=== PATIENT | male | born 1995 | race African-American/Black ===

== ENCOUNTER 2016-12-30 07:33 | Emergency (ER) | payer MEDICAID, OTHER ==
[~2016-12-30] VITALS: Ht 172.7 cm; Wt 68.2 kg
[~2016-12-30 07:33] MED LIST: OMEP20CA11 PO; SUCR1ORA2 PO
[2016-12-30 07:36] VITALS: BP 152/102; PULSE 81; RESP 18; O2SAT 96
--- NOTE | 2016-12-30 07:40 | ED.REPORT ---
HPI-NVD Date of Service Dec 30, 2016 ED Provider: The patient is a 21 year old otherwise healthy male who presents to the emergency department complaining of nausea, vomiting, and diarrhea that began last night. He has also experienced abdominal pain, subjective fever, and diaphoresis. He reports noticing some blood in his emesis this morning. His diarrhea has been watery. He denies any other symptoms. His daughter is sick with similar symptoms. Nursing Notes Stated Complaint: VOMITING/DIARRHEA Chief Complaint: Male Abdominal Pain Nursing Notes Reviewed: Yes Allergies: Coded Allergies: No Known Allergies (Unverified Allergy, Unknown, 10/31/14) Scheduled Omeprazole (Omeprazole) 20 Mg Capsule.dr 20 MG PO BID Sucralfate Susp (Carafate Susp) 1 Gm/10 Ml Oral.susp 1 GM PO QID Scheduled PRN Ondansetron ODT (Zofran ODT) 4 Mg Tablet 4 MG PO Q4H PRN PRN For Nausea General Time Seen by MD: 07:44 Chief Complaint Nausea, Vomiting, Diarrhea Hx Obtained From: Patient Arrived By: Walk-in Onset Occurred: 13 - 16 hours ago Symptom Duration: Since onset Location: : Diffuse Quality: Painful Severity: Current: Mild Severity: Maximum: Mild Associated with: Reports: Abdominal pain Pertinent Negative: Pt denies other symptoms Recent Healthcare: No recent doctor visit, No recent hospitalization Similar Sx Previous: No Past Medical History Past Medical History Back fracture - otherwise pt denies other medical problems Past Surgical History None Family History Noncontributory Smoking History Current Every Day Smoker Social History Alcohol Use: 1-3 per day Drug Use: THC Other Social History: Good social support, Lives with children, Local resident Ambulatory Status Independent Review of Systems Review of Systems Note: +bloody emesis Constitutional: Reports: Fever (subjective) Ears / Nose / Throat: Denies: Sore throat GI: Reports: Abdominal pain, Diarrhea, Nausea, Vomiting Skin: Reports Diaphoresis Complete sys rev & neg: except as marked. Physical Exam Initial Vital Signs Vital Signs (First) Date Time Temp Pulse Resp B/P Pulse Ox O2 Delivery O2 Flow Rate FiO2 12/30/16 07:36 36.0 81 18 152/102 96 Room Air Initial VS: Reviewed Head / Eyes: Atraumatic, Normocephalic, PERRL Neck: Supple, Non-tender, Full range of motion Respiratory: Breath sounds normal, Clear to auscultation, No respiratory distress Cardiovascular: Regular rate & rhythm, Heart sounds normal, Intact distal pulses Lymphatic: No lymphadenopathy Extremities: Vascular intact, Neuro intact, No swelling, No tenderness Skin: Warm, Dry, No cyanosis Neurologic: Alert, Oriented, Nonfocal Psychiatric: Mood/affect normal, Behavior normal, Normal thought content General/Constitutional: Awake, Alert, Well appearing Abdomen: Atraumatic, Soft, Non-tender, McBurney's non-tender, No guarding, No rebound, BS normoactive, No distention, No hernia, No palpable mass Tenderness/Guarding/Rebound: Positive: Tender epigastric (mild) ENT: Airway patent, Mucous membranes moist, Pharynx NL No blood in oropharynx. Re-Eval/Medical Decision Med Decision/Clinical Course Likely self-limited nausea vomiting and diarrhea. Family with similar symptoms. Reassuring abdominal exam. No recurrence in the ER. Was some reported question of whether or not the patient had bloody emesis, this did not sound like life-threatening gastrointestinal bleeding based on clinical history and there has been no recurrence of vomiting in the ER. Discussion with patient that we will manage this like a self-limiting episode of vomiting and diarrhea, extensive discussion about return precautions specifically related to bloody vomiting and diarrhea or other concerns given. Source of Hx: Old records, Family Re-Evaluation/Progress : Time of Eval: 08:36 Re-Evaluation/Progress Note: The patient was able to tolerate PO and is feeling much better. Discussed plan for discharge. All questions were addressed. Counseled Regarding: Diagnosis, Need for follow-up, When/why to return to ED Discharge & Departure Impression: Primary Impression: Nausea, vomiting, and diarrhea Disposition: Home Discharge Condition All VS Reviewed: Yes Condition: Stable Patient Instructions: Acute Nausea and Vomiting (ED) Additional Instructions: Thank you for entrusting us with your care today. You can take Zofran as needed for your nausea and vomiting. Use [id number] antidiarrheal medicine as instructed on the packaging. Drink fluids as tolerated. Followup with your regular doctor if your symptoms are not improving. Return to the emergency department for increased pain, uncontrollable vomiting, inability to keep fluids down, bloody emesis, bloody diarrhea, or any other new or concerning symptoms. Referrals: [facility] Scribe Attestation Portions of this note were transcribed by Penny Frost. I, Dr. Nathan personally performed the history, physical exam and medical decision-making; I reviewed and confirmed the accuracy of the information in the transcribed note. Signed by: Maite Ramey, 12/30/2016 and 0850. Kip Nathan DO Dec 30, 2016 07:40 Penny Frost Dec 30, 2016 07:49
[2016-12-30] MEDS ORDERED: Ondansetron 8 mg ODT Tablet PO ONE (07:45)
[2016-12-30] MEDS ORDERED: ONDA4TAB9 PO (08:44)
== END 2016-12-30 08:45 | disposition home or self-care (01) ==
LOC: SED 07:33
DX: R11.2 Nausea with vomiting, unspecified (principal); R19.7 Diarrhea, unspecified; F17.200 Nicotine dependence, unspecified, uncomplicated

== ENCOUNTER 2017-04-11 11:41 | Emergency (ER) | payer OTHER ==
[~2017-04-11] VITALS: Ht 170.2 cm; Wt 70.5 kg
[~2017-04-11 11:41] MED LIST changes: +ONDA4TAB9 PO
[2017-04-11 11:43] VITALS: BP 134/81; PULSE 60; RESP 16; O2SAT 98
--- NOTE | 2017-04-11 11:58 | ED.REPORT ---
HPI-Chest Pain Under 40 Date of Service April 11, 2017 ED Provider: Buzz Tao MD Pt is a 22 y.o. male with a self-reported hx of back fracture who presents to the ED c/o intermittent severe right chest pain rated at an 8 onset 2 days ago and worsening today. Pt states that his chest pain radiates to his right shoulder and right upper back. The pain is exacerbated by movement, deep inspiration, and palpation. He reports associated SOB. He denies fever, nausea, vomiting, numbness and tingling in extremities, and recent illness. Pt denies a mechanism of injury however he does state he lifts objects at work. Nursing Notes Stated Complaint: MUSCLE SPASMS,BACK AND CHEST PAIN Chief Complaint: Chest Pain-Non Cardiac Nature Nursing Notes Reviewed: Yes Allergies: Coded Allergies: No Known Allergies (Verified Allergy, Unknown, 04/11/17) Scheduled Azithromycin (Zithromax (Z-Ran)) 250 Mg Tablet 250 MG PO DIRECTED Take two tablets by mouth on day 1, then take one tablet daily on days 2 through 5. Scheduled PRN Ibuprofen (Ibuprofen) 800 Mg Tablet 800 MG PO TID PRN PRN For Pain General Time Seen by MD: 11:46 Chief Complaint Chest pain Hx Obtained From: Patient Arrived By: Walk-in Sudden in Onset?: Yes Location: : Chest right Quality: Painful Radiation: : Back: Shoulder right Severity: Current: Moderate Severity: Maximum: Severe Recent Healthcare: No recent doctor visit, No recent hospitalization Past Medical History Past Medical History Back fracture - otherwise pt denies other medical problems Past Surgical History None Family History Noncontributory Smoking History Current Every Day Smoker Social History Alcohol Use: 1-3 per day Drug Use: THC Other Social History: Good social support, Lives with children, Local resident Ambulatory Status Independent Review of Systems Constitutional: Denies: Fever Cardiovascular: Reports: Chest pain (Right) GI: Denies: Nausea, Vomiting Musculoskeletal: Reports: Back pain, Joint pain (Right shoulder) Neurologic: Denies: Numbness Complete sys rev & neg: except as marked. Physical Exam Initial Vital Signs Vital Signs (First) Date Time Temp Pulse Resp B/P Pulse Ox O2 Delivery O2 Flow Rate FiO2 04/11/17 11:43 36.7 60 16 134/81 98 Room Air Initial VS: Reviewed Head / Eyes: Atraumatic, Normocephalic, PERRL Abdomen / GI: Soft, Non-tender, No distention Extremities: Vascular intact, Neuro intact Skin: Warm, Dry, No cyanosis Neurologic: Alert, Oriented, Nonfocal Psychiatric: Mood/affect normal, Behavior normal, Normal thought content General/Constitutional: Awake, Alert, Well appearing, Well developed, Well hydrated, Well nourished, Not toxic appearing Respiratory / Chest: Atraumatic, Breath sounds NL, Breath sounds = bilat, No respiratory distress, No wheezing Cardiovascular: Heart rate NL, Regular rhythm, Heart sounds NL, Cap refill not delayed, Peripheral circulation NL Upper Extremity / MS: Atraumatic, No deformity, Neurologic intact, Vascular intact Upper Ext Brief Normals: Shoulder L exam normal Right Shoulder: Positive: ROM reduced (Due to pain), Tenderness present..., Negative: Deformity present, Erythema present, Warmth present Interpretation & Diagnostics ECG Interpretation ECG Interpretation: Early repol in V2 No ST changes Time: 13:09 Interpreted by: ED physician Normal ECG Interpretation: Normal rate (57), Normal sinus rhythm, No acute ischemic changes, Normal QRS X-Ray Chest Interpretation Chest Xray Interpretation: IMPRESSION: Ill-defined patchy opacity projecting in the right lung base possibly early bronchopneumonia, versus low-grade atelectasis/aspiration. Recommend clinical correlation Dictated by: Tuan Ellis M.D. on 04/11/2017 at 13:25 Approved by: Tuan Ellis M.D. on 04/11/2017 at 13:27 Re-Eval/Medical Decision Med Decision/Clinical Course 22-year-old male presenting with right-sided chest pain 1 day. X-ray shows possible early right-sided pneumonia. He does have reproducible right chest tenderness and it did start after he had an episode of heavy lifting therefore could be musculoskeletal though given x-ray findings will treat with Z-Ran. Return precautions given. Source of Hx: Old records Re-Evaluation/Progress #1: Time of Eval: 12:42 Re-Evaluation/Progress Note: Physical exam performed. Pt had just recieved Toradol injection. Discussed need for chest x-ray and ECG. Pt understands and agrees with plan. Re-Evaluation/Progress #2: Time of Eval: 13:47 Patient Status: Pain improved Re-Evaluation/Progress Note: Pt rechecked. Pt's pain is improved. Discussed imaging results and plan for discharge, pt understands and agrees with plan. Counseled Regarding: Diagnosis, Lab results, Need for follow-up, When/why to return to ED Discharge & Departure Primary Impression: Non-cardiac chest pain Additional Impression: Pneumonia Pneumonia type: due to unspecified organism Laterality: right Lung location : lower lobe of lung Qualified Code: J18.1 - Lobar pneumonia, unspecified organism Disposition: Home Discharge Condition All VS Reviewed: Yes Condition: Improved Patient Instructions: Community Acquired Pneumonia (ED) Additional Instructions: Thank you for entrusting us with your care today. I do not believe there is a serious mechanism for your pain. Your chest x-ray shows an early pneumonia and this may be the cause of your symptoms. I will prescribe you Azithromycin, take as directed. Take ibuprofen as directed for pain. I recommend you follow-up with your primary care provider next week, call Thursday to schedule an appointment. Return if you develop severe chest pain, difficulty breathing, numbness or tingling in your extremities, or any new or worsening symptoms. Referrals: [facility] (PCP) [facility] Scribursula Attestation Portions of this note were transcribed by Lázaro Weems. I, Dr. Tao personally performed the history, physical exam and medical decision-making; I reviewed and confirmed the accuracy of the information in the transcribed note. Signed by: Maite Woods, 04/11/17 and 1416. copies to: [facility] Buzz Tao MD April 11, 2017 11:58 LÁZARO WEEMS April 11, 2017 12:05
--- NOTE | 2017-04-11 13:28 | DRSVH ---
PROCEDURE: X-RAY CHEST ONE VIEW, PORTABLE ([id number]) INDICATIONS: chest pain TECHNIQUE: One view of the chest was acquired. COMPARISON: [facility], CR, XR ABD ACUTE SERIES 3VW, 01/02/2016, 10:46. FINDINGS: Surgical changes and devices: None. Lungs and pleura: No pleural effusions or pneumothorax. Ill-defined patchy opacity projects in the r ight lung base. Mediastinum: Mediastinal contours appear normal. Heart size is normal. Bones and chest wall: No suspicious bony lesions. Overlying soft tissues appear unremarkable. Scol iosis as before IMPRESSION: Ill-defined patchy opacity projecting in the right lung base possibly early bronchopneumo jak, versus low-grade atelectasis/aspiration. Recommend clinical correlation Dictated by: Tuan Ellis M.D. on 04/11/2017 at 13:25 Approved by: Tuan Ellis M.D. on 04/11/2017 at 13:27
[2017-04-11] MEDS ORDERED: AZIT250T4 PO (13:38)
[2017-04-11] MEDS ORDERED: IBUP800T28 PO (13:52)
[2017-04-11 14:04] VITALS: BP 132/78; PULSE 62; RESP 16; O2SAT 98
== END 2017-04-11 14:05 | disposition home or self-care (01) ==
LOC: SED 11:41
DX: R07.89 Other chest pain (principal); J18.1 Lobar pneumonia, unspecified organism; F17.200 Nicotine dependence, unspecified, uncomplicated
CPT/HCPCS: 71010; 93005; 96372; 99284; J1885